=== PATIENT | female | born 1990 | race Two or more races ===

== ENCOUNTER 2024-11-14 23:35 | Emergency (ER) | payer BC ==
[~2024-11-14] VITALS: Ht 165.1 cm; Wt 58.6 kg
[2024-11-15 02:01] LABS: Urine Protein, UAD Negative (Negative)
[2024-11-15 02:36] VITALS: BP 113/69; PULSE 70; RESP 20; TEMP 98.4; O2SAT 100
--- NOTE | 2024-11-15 03:09 | DVH ---
INDICATION: pelvic pain TECHNIQUE: Multiple real-time grayscale transabdominal sonographic images along with color and duplex Doppler of the uterus and ovaries were obtained. COMPARISON: US OB TRANS VAGINAL US on DOS: 11/15/24 FINDINGS: The uterus measures 11.3 x 7.2 x 5.4 cm. The endometrial stripe measures 1.4 cm. No evidenc e of intrauterine gestation. No evidence of pelvic cul-de-sac free fluid. Right ovary measures 3.8 x 2.6 x 2.5 cm with normal Doppler color flow and contains a thick walled cy st with peripheral vascularity measuring 2.3 x 1.9 x 1.8 cm. Left ovary not visualized. 0.5 cm nabothian cyst. IMPRESSION: 1. Thick-walled right ovarian cyst measuring 2.3 cm may represent a corpus luteal cyst. 2. Moderately thickened endometrial echo complex. 3. Nabothian cyst.
--- NOTE | 2024-11-15 03:22 | ED.PDOC ---
[employer] OPERATOR HPI Comments Patient complaining of left-sided pelvic pain x2 days. States he has been intermittent. Was concerned so she took a test today. States that presently test at home was positive. Patient states she has had two atopic pregnancies in the past. Patient denies any vaginal bleeding. States her last menstrual period was October 11. Chief Complaint: Pelvic Pain Time Seen by MD: 23:42 Reviewed Notes: Nurses Notes Allergies: Coded Allergies: NO KNOWN ALLERGIES (Unverified , 11/14/24) Information Source: Patient Past Medical History PAST MEDICAL HISTORY: Denies Surgical History: Denies all surgeries MANAGER OF NETWORK History: No Pertinent MANAGER OF NETWORK History Constitutional: denies: chills, diaphoresis, fatigue, fever, malaise, sweats, weakness, others EENTM: denies: blurred vision, double vision, ear bleeding, ear discharge, ear drainage, ear pain, ear ringing, eye pain, eye redness, hearing loss, mouth pain, mouth swelling, nasal discharge, nose bleeding, nose congestion, nose pain, photophobia, tearing, throat pain, throat swelling, voice changes, others Respiratory: denies: cough, hemoptysis, orthopnea, SOB at rest, shortness of breath, SOB with excertion, stridor, wheezing, others Cardiovascular: denies: chest pain, dizzy spells, diaphoresis, Dyspnea on exertion, edema, irregular heart beat, left arm pain, lightheadedness, palpitations, PND, syncope, others Gastrointestinal: denies: abdomen distended, abdominal pain, blood streaked bowels, constipated, diarrhea, dysphagia, difficulty swallowing, hematemesis, melena, nausea, poor appetite, poor fluid intake, rectal bleeding, rectal pain, vomiting, others Genitourinary: reports: pain, ; denies: abnormal vagina bleeding, burning, dyspareunia, dysuria, flank pain, frequency, hematuria, incontinence, vagina discharge, urgency, others Neurological: denies: dizziness, fainting, headache, left sided numbness, left sided weakness, numbness, paresthesia, pre-existing deficit, right sided numbness, right sided weakness, seizure, speech problems, tingling, tremors, weakness, others Musculoskeletal: reports: muscle pain, muscle stiffness; denies: back pain, gout, joint pain, joint swelling, neck pain, others Integumetry: denies: bruises, change in color, change in hair/nails, dryness, laceration, lesions, lumps, rash, wounds, others Allergic/Immunocompromised: denies: Difficulty Healing, Frequent Infections, Hives, Itching, others Hematologic/Lymphatic: denies: anemia, blood clots, easy bleeding, easy bruising, swollen glands, others Endocrine: denies: excessive hunger, excessive sweating, excessive thirst, excessive urination, flushing, intolerance to cold, intolerance to heat, unexplained weight gain, unexplained weight loss, others Physical Exam General Appearance: No Apparent Distress, Normal HEENT: Normal ENT Inspection, Pharynx Normal, TMs Normal Neck: Full Range of Motion, Non-Tender, Normal, Normal Inspection Respiratory: Chest Non-Tender, Lungs Clear, No Accessory Muscle Use, No Respiratory Distress, Normal Breath Sounds Cardiovascular: No Edema, No JVD, No Murmur, No Gallop, Normal Peripheral Pulses, Regular Rate/Rhythm Breast Exam: Deferred Gastrointestinal: No Organomegaly, Non Tender, No Pulsatile Mass, Normal Bowel Sounds, Soft Genitalia: Deferred Pelvic: Deferred Rectal: Deferred Extremities: No calf tenderness, Normal capillary refill, Normal inspection, Normal range of motion, Non-tender, No pedal edema Musculoskeletal : Apperance: Normal Neurologic: Alert, beamer hand II-XII nml as Tested, No Motor Deficits, Normal Affect, Normal Mood, No Sensory Deficits Cerebellar Function: Normal Reflexes: Normal Skin: Dry, Normal Color, Warm Lymphatic: No Adenopathy Was a procedure done? Was a procedure done?: No Differential Diagnosis (MANAGER OF NETWORK) Vaginal Bleeding: - Incomplete, - Inevitable, - Missed, - Threatened, Dysmenorrhea, Ectopic X-Ray, Labs, Meds, VS Vital Signs Date Time Temp Pulse Resp B/P (MAP) Pulse Ox O2 Delivery O2 Flow Rate FiO2 11/15/24 02:36 98.4 70 20 113/69 (84) 100 98.4 11/14/24 23:36 98.3 67 16 124/72 100 98.3 Lab Test 11/15/24 00:08 11/15/24 00:02 Range/Units Beta HCG, Quantitative Pending Urine Color Light-yellow Yellow Urine Clarity Clear Clear Urine pH 7.5 5.0-9.0 Urine Specific [place] 1.018 1.001-1.035 Urine Protein Negative Negative Urine Ketones Negative Negative Urine Blood Negative Negative /uL Urine Nitrite Negative Negative Urine Bilirubin Negative Negative Urine Urobilinogen Normal Negative mg/dL Urine Leukocyte Esterase Negative Negative /uL Urine RBC None seen 0 - 4 /hpf Urine Microscopic WBC 1 0-5 /HPF Urine Squamous Epithelial Cells Few <5 /hpf Urine Bacteria Few H None Seen /hpf Urine Glucose Normal Normal mg/dL Urine Test Positive Negative X-Ray, Labs, Meds, VS Comment No obvious ectopic Follow up with PCP next available appointment Return emergency department in two days for follow up ultrasound if still having pain Time of 1ST Reevaluation: 03:22 Reevaluation 1ST: Unchanged Patient Education/Counseling: Diagnosis, Treatment, Need For Follow Up (Follow up in two days for recheck) Family Education/Counseling: Diagnosis, Treatment Departure 1 Departure Time of Disposition: 03:21 Impression: Primary Impression: First trimester Disposition: 01 HOME / SELF CARE / HOMELESS Condition: Fair Discharged With: Self Critical Care Note Critical Care Time?: No Stability Stability form required: No Heart Score Heart Score: Heart Score Response (Comments) Value History N/A 0 EKG N/A 0 Age N/A 0 Risk Factors N/A 0 Troponin N/A 0 Total 0 FRANCISCO ARIAS Nov 15, 2024 03:22
== END 2024-11-15 03:22 | disposition home or self-care (01) ==
LOC: ER 23:35
DX: O26.891 Other specified pregnancy related conditions, first trimester (principal); R10.21 Pelvic and perineal pain right side; Z3A.01 Less than 8 weeks gestation of pregnancy
CPT/HCPCS: 36415; 76801; 76817; 81001; 81025; 84702